=== PATIENT | female | born 1945 | race Two or more races ===

== ENCOUNTER 2023-05-01 20:06 | Emergency (ER) | payer OTHER ==
[~2023-05-01] VITALS: Ht 157.5 cm; Wt 47.6 kg
[~2023-05-01 20:06] MED LIST: ALTACE10 M1; NEURONTIN300 MG; SYNTHROID125 MCG
[2023-05-01] MEDS ORDERED: SIMVASTATIN5 MG PO (20:20)
[2023-05-01] MEDS ORDERED: ACETAMINOPHEN 500 MG GEL..CAP PO ONE (21:45)
[2023-05-01] MEDS ORDERED: ORPHENADRINE CITRATE 30 MG/ML AMPUL IM ONE (21:45)
[2023-05-01 22:21] LABS: HEMATOCRIT 35.9 % (36.0-45.00); HEMOGLOBIN 12.1 g/dL (12.0-15.00); MEAN CELL VOLUME 90.4 fL (80.00-100.00); MEAN CORPUSCULAR HEMOGLOBIN 30.4 pg (27.00-32.0); MEAN CORPUSCULAR HGB CONC 33.6 g/dl (32.0-36.0); PLATELET COUNT 231 K/uL (150-450); RED BLOOD COUNT 3.97 M/uL (4.00-6.00); RED CELL DISTRIBUTION WIDTH 14.6 % (11.5-14.5)
== END 2023-05-02 02:50 | disposition home or self-care (01) ==
LOC: ER 20:06
PROVIDERS: Emergency Medicine
DX: M15.9 Polyosteoarthritis, unspecified (principal); M43.6 Torticollis; R42 Dizziness and giddiness; I10 Essential (primary) hypertension; Z88.6 Allergy status to analgesic agent; Z88.8 Allergy status to other drugs, medicaments and biological substances; E78.00 Pure hypercholesterolemia, unspecified; M81.8 Other osteoporosis without current pathological fracture; E03.9 Hypothyroidism, unspecified; Z93.3 Colostomy status; M50.31 Other cervical disc degeneration, high cervical region
CPT/HCPCS: 36415; 70130; 70210; 70450; 72125; 96372; 99284; J2360

== ENCOUNTER 2023-05-19 07:45 | Inpatient (IN) | payer OTHER ==
[~2023-05-19] VITALS: Ht 157.5 cm; Wt 42.2 kg
[~2023-05-19 07:45] MED LIST changes: +SIMVASTATIN5 MG PO
[2023-05-19 10:03] LABS: HEMATOCRIT 35.2 % (36.0-45.00); HEMOGLOBIN 11.7 g/dL (12.0-15.00); MEAN CELL VOLUME 90.5 fL (80.00-100.00); MEAN CORPUSCULAR HEMOGLOBIN 30.1 pg (27.00-32.0); MEAN CORPUSCULAR HGB CONC 33.3 g/dl (32.0-36.0); PLATELET COUNT 299 K/uL (150-450); RED BLOOD COUNT 3.89 M/uL (4.00-6.00); RED CELL DISTRIBUTION WIDTH 14.3 % (11.5-14.5)
[2023-05-19 10:05] LABS: URINE APPEARANCE Clear; URINE BILIRRUBIN Negative (NEGATIVE); URINE BLOOD Negative; URINE COLOR Yellow; URINE GLUCOSE Negative (NEGATIVE); URINE LEUKOCYTE Negative; URINE NITRATE Negative; URINE PROTEIN Negative (NEGATIVE); URINE UROBILINOGEN 0.2 E.U./dl
[2023-05-19 10:06] LABS: URINE BACTERIA 23.9 uL (0.0-1933); URINE EPITHELIAL CELLS 7.5 uL (0.0-38.8); URINE RBC 5.3 uL (0.0-20.8); URINE WBC 4.6 uL (0.0-23.2)
[2023-05-19 10:30] LABS: INR 1.02; PARTIAL THROMBOPLASTIN TIME 32.8 SECONDS (22.0-34.0); PROTHROMBIN TIME 10.7 SECONDS (9.0-11.5)
[2023-05-19 10:31] LABS: ALBUMIN 3.8 gm/dL (3.4-5.0); BILIRUBIN TOTAL 0.63 mg/dL (0.3-1.2); CALCIUM 8.9 mg/dL (8.5-10.1); CREATININE SERUM 0.55 mg/dL (0.55-1.02); GFR 106.35; POTASSIUM 3.71 mEq/L (3.5-5.1); TOTAL PROTEIN 7.8 gm/dL (6.4-8.2)
[2023-05-27] MEDS ORDERED: TRANEXAMIC ACID 100MG/1ML (1000MG) AMPUL IV ONE ×3 (06:44→08:30)
[2023-05-27] MEDS ORDERED: CEFAZOLIN SODIUM 1,000 MG VIAL ONE ×2 (06:44→09:41)
[2023-05-27] MEDS ORDERED: KETOROLAC TROMETHAMINE 60 MG VIAL IM ONE (06:45)
[2023-05-27] MEDS ORDERED: LIDOCAINE HCL 1%/Epi 20ML VIAL IJ ONE ×2 (06:45→08:30)
[2023-05-27] MEDS ORDERED: BUPIVACAINE HCL/PF 0.5% 30ML ML ONE (06:45)
[2023-05-27] MEDS ORDERED: POVIDONE-IODINE 3 EA MED..SWAB TOP ONE (07:20)
[2023-05-27] MEDS ORDERED: GABAPENTIN400 MG (07:46)
[2023-05-27] MEDS ORDERED: RAMIPRIL5 MG (07:46)
[2023-05-27] MEDS ORDERED: OMEPRAZOLE20 MG (07:47)
[2023-05-27] MEDS ORDERED: MAXIMUM D3325 MCG (07:47)
[2023-05-27] MEDS ORDERED: RAMIPRIL10 MG (07:47)
[2023-05-27] MEDS ORDERED: LEVO-T25 MCG (07:51)
[2023-05-27] MEDS ORDERED: SIMVASTATIN20 MG (07:52)
[2023-05-27] MEDS ORDERED: IRON236 MG (07:53)
[2023-05-27] MEDS ORDERED: CEFAZOLIN SODIUM 1,000 MG VIAL IV ONE (08:30)
[2023-05-27] MEDS ORDERED: MORPHINE SULFATE 4 MG/ML VIAL IV ONE (08:30)
[2023-05-27] MEDS ORDERED: BUPIVACAINE HCL 30 ML VIAL IJ ONE (08:30)
[2023-05-27] MEDS ORDERED: ONDANSETRON HCL 2 MG/ML VIAL IV PRN (08:30)
[2023-05-27] MEDS ORDERED: SODIUM CHLORIDE 0.45 % 1,000 ML IV SCH (08:30)
[2023-05-27] MEDS ORDERED: OxyCODONE HCL 5 MG TABLET (ROXICODONE) PO PRN (08:30)
[2023-05-27] MEDS ORDERED: MORPHINE SULFATE 4 MG/ML CARTRIDGE IV PRN (08:30)
[2023-05-27] MEDS ORDERED: ISOPROPYL ALCOHOL 30 ML OUNCE TOP ONE (08:30)
[2023-05-27] MEDS ORDERED: POVIDONE-IODINE 0.75 OZ PACKET TOP ONE (08:30)
[2023-05-27] MEDS ORDERED: CEFAZOLIN SODIUM 1,000 MG VIAL IV SCH (09:00)
[2023-05-27] MEDS ORDERED: GABAPENTIN 300 MG CAPSULE PO SCH (09:00)
[2023-05-27] MEDS ORDERED: ACETAMINOPHEN 500 MG GEL..CAP PO SCH (12:00)
[2023-05-27] MEDS ORDERED: hydrALAZINE HCL 20 MG VIAL IV PRN (13:15)
[2023-05-27] MEDS ORDERED: APIXABAN 2.5 MG TABLET PO SCH (17:00)
[2023-05-28 06:48] LABS: HEMATOCRIT 29.9 % (36.0-45.00); HEMOGLOBIN 10.3 g/dL (12.0-15.00); MEAN CELL VOLUME 90.5 fL (80.00-100.00); MEAN CORPUSCULAR HEMOGLOBIN 31.1 pg (27.00-32.0); MEAN CORPUSCULAR HGB CONC 34.3 g/dl (32.0-36.0); PLATELET COUNT 175 K/uL (150-450); RED CELL DISTRIBUTION WIDTH 13.9 % (11.5-14.5)
[2023-05-28] MEDS ORDERED: IRON FUM,PS/FOLIC ACID/VITC/B3 1 CAP CAPSULE PO SCH (09:00)
[2023-05-28] MEDS ORDERED: SENNOSIDES 1 TAB TABLET PO SCH (09:00)
[2023-05-28] MEDS ORDERED: PERCOCET 5-3251 EACH PO (09:03)
[2023-05-28] MEDS ORDERED: DUI500 PO (09:03)
[2023-05-28] MEDS ORDERED: ELIQUIS2.5 MG PO (09:03)
[2023-05-28] MEDS ORDERED: RAMIPRIL 5 MG CAPSULE PO SCH (12:35)
[2023-05-28] MEDS ORDERED: THIAMINE HCL 100 MG/ML 2 ML VIAL IV SCH (15:08)
[2023-05-28] MEDS ORDERED: SOD FERRIC GLUC COMPLX/SUCROSE 62.5 MG/5 ML AMPUL IV SCH (15:08)
[2023-05-28] MEDS ORDERED: Cyanocobalamin/Mecobalamin 1 TAB.SL SL SCH (17:00)
[2023-05-28] MEDS ORDERED: VITAMIN B COMPLEX 1 EACH PO SCH (17:00)
[2023-05-29] MEDS ORDERED: LEVOTHYROXINE SODIUM 125 MCG TABLET PO SCH (06:00)
[2023-05-29 07:07] LABS: HEMATOCRIT 30.9 % (36.0-45.00); HEMOGLOBIN 10.5 g/dL (12.0-15.00); MEAN CELL VOLUME 89.2 fL (80.00-100.00); MEAN CORPUSCULAR HEMOGLOBIN 30.5 pg (27.00-32.0); MEAN CORPUSCULAR HGB CONC 34.2 g/dl (32.0-36.0); PLATELET COUNT 178 K/uL (150-450); RED BLOOD COUNT 3.46 M/uL (4.00-6.00); RED CELL DISTRIBUTION WIDTH 14.1 % (11.5-14.5)
== END 2023-05-29 17:25 | disposition home or self-care (01) | DRG 470 ==
LOC: O/R 05-27 05:30 → PED 05-27 05:30 → SURH 05-27 07:45 → PED 05-27 11:34
PROVIDERS: ADMIT Orthopaedic Surgery; ATTEND Orthopaedic Surgery
PROC: 0SRD0J9 Replacement of Left Knee Joint with Synthetic Substitute, Cemented, Open Approach (ICD-10-PCS; principal; 2023-05-27 10:00)
DX: M17.12 Unilateral primary osteoarthritis, left knee (principal); D62 Acute posthemorrhagic anemia; M22.12 Recurrent subluxation of patella, left knee; I10 Essential (primary) hypertension; E03.9 Hypothyroidism, unspecified